=== PATIENT | female | born 1950 | race Caucasian/White ===

== ENCOUNTER 2017-07-15 10:32 | Inpatient (IN) | payer MEDICARE, OTHER ==
[~2017-07-15] VITALS: Ht 157.5 cm; Wt 71.5 kg
[2017-07-15] MEDS ORDERED: RISP1TAB27 PO (11:08)
[2017-07-15] MEDS ORDERED: QUET50TA PO (11:08)
[2017-07-15] MEDS ORDERED: TRAZ-144 PO (11:08)
[2017-07-15] MEDS ORDERED: METO25TA6 PO (11:08)
[2017-07-15] MEDS ORDERED: METO-302 PO (11:08)
[2017-07-15] MEDS ORDERED: PARO20TA7 PO (11:08)
[2017-07-15] MEDS ORDERED: MEMA10TA PO (11:08)
[2017-07-15] MEDS ORDERED: [UNRECOGNIZED DRUG - OTHER] (11:08)
[2017-07-15] MEDS ORDERED: LISI-603 PO (11:08)
[2017-07-15] MEDS ORDERED: IV NORMAL SALINE 500 ML BAG IV ONE (11:15)
[2017-07-15 11:21] LABS: BASOPHILS % (AUTO) 0.7 % (0.0-2.0); EOSINOPHILS # (AUTO) 0.2 K/uL (0.0-0.7); EOSINOPHILS % (AUTO) 3.7 % (0.0-7.0); HEMATOCRIT 36.1 % (31.2-41.9); HEMOGLOBIN 12.2 g/dL (10.9-14.3); LYMPHOCYTES # (AUTO) 1.5 K/uL (20.0-40.0); LYMPHOCYTES % (AUTO) 26.8 % (20.5-51.5); MEAN CORPUSCULAR HEMOGLOBIN 30.7 uug (24.7-32.8); MEAN CORPUSCULAR HGB CONC 34 g/dL (32.3-35.6); MEAN CORPUSCULAR VOLUME 90.6 fL (75.5-95.3); MONOCYTES # (AUTO) 0.5 K/uL (2.0-10.0); MONOCYTES % (AUTO) 8.3 % (0.0-11.0); NEUTROPHILS # (AUTO) 3.4 K/uL (1.8-8.9); NEUTROPHILS % (AUTO) 60.5 % (38.5-71.5); PLATELET COUNT (AUTO) 263 K/uL (179-408); RED BLOOD CELL COUNT(AUTO) 3.98 MIL/uL (3.63-4.92); WHITE BLOOD COUNT (AUTO) 5.6 K/uL (3.8-11.8)
[2017-07-15 11:34] LABS: CARBON DIOXIDE 24 mmol/L (21-32); CHLORIDE 108 mmol/L (98-107); CREATININE 0.9 mg/dL (0.6-1.3); GLUCOSE 95 mg/dL (74-106); UREA NITROGEN, BLOOD 25 mg/dL (7-18)
[2017-07-15 11:39] LABS: ETHANOL < 3 MG/DL (0-0)
[2017-07-15 11:40] LABS: ALANINE AMINOTRANSFERASE 23 U/L (14-59); ALKALINE PHOSPHATASE 51 U/L (50-136); ASPARTATE AMINOTRANSFERASE 14 U/L (15-37); BILIRUBIN,DIRECT 0.1 mg/dL (0.0-0.2); BILIRUBIN,TOTAL 0.4 mg/dL (0.2-1.0); TOTAL PROTEIN, SERUM 6.6 g/dL (6.4-8.2)
[2017-07-15 11:42] LABS: ACETAMINOPHEN < 2.0 ug/mL (10-30)
[2017-07-15 11:48] LABS: THYROID STIMULATING HORMONE 1.541 mIU/mL (0.358-3.740)
[2017-07-15 12:52] LABS: *BILIRUBIN,URIN NEGATIVE (NEGATIVE); *BLOOD, URINE NEGATIVE (NEGATIVE); *CLARITY,URINE CLEAR (CLEAR); *COLOR,URINE CLEAR (YELLOW); *KETONES,URINE NEGATIVE (NEGATIVE); *PROTEIN,URINE NEGATIVE (NEGATIVE); *UROBILINOGEN,URINE 0.2 E.U./dl (NORMAL); LEUKOCYTE ESTERASE ,URINE TRACE (NEGATIVE); NITRITE, URINE NEGATIVE (NEGATIVE); UGLUCOSE NEGATIVE (NEGATIVE)
[2017-07-15 13:00] LABS: BACTERIA,URINE NONE SEEN /HPF (NONE SEEN); RBC,URINE 0-3 /HPF (0-3); SQUAMOUS EPITHELIAL CELL,UR FEW /HPF (NONE SEEN); WBC,URINE 0-3 /HPF (0-3)
[2017-07-15 13:09] LABS: *AMPHETAMINE, URINE NEGATIVE (NEGATIVE); *BARBITURATE, URINE NEGATIVE (NEGATIVE); *CANNABINOID, URINE NEGATIVE (NEGATIVE); *COCCAINE, URINE NEGATIVE (NEGATIVE); *OPIATE, URINE NEGATIVE (NEGATIVE); *PHENCYCLIDINE SCREEN,URINE NEGATIVE (NEGATIVE)
[2017-07-15 13:49] VITALS: BP 131/68
[2017-07-15] MEDS ORDERED: DEXTROSE 50% 50 ML DISP.SYRIN IV PRN (16:00)
[2017-07-15 17:06] VITALS: BP 131/77
[2017-07-15] MEDS: BLOOD SUGAR DIAGNOSTIC 1 EACH STRIP VI SCH ×2 (17:07→20:17)
[2017-07-15] MEDS: INSULIN REGULAR, HUMAN 300 UNIT/3 ML VIAL SQ PRN ×2 (17:07→20:19)
[2017-07-15] MEDS ORDERED: risperiDONE 1 MG TABLET PO SCH (18:00)
[2017-07-15] MEDS ORDERED: MAG HYDROX/AL HYDROX/SIMETH 30 ML LIQUID UDC PO PRN (18:00)
[2017-07-15] MEDS: TRAZODONE 50 MG TABLET PO SCH (18:37)
[2017-07-15] MEDS: QUETIAPINE FUMARATE 25 MG TABLET PO SCH (20:13)
[2017-07-15 20:36] VITALS: BP 96/46
[2017-07-15] MEDS: IV NS 1000 ML 1,000 ML IV PRN (20:57)
[2017-07-16 00:10] VITALS: BP 111/61
[2017-07-16 05:06] VITALS: BP 114/42
[2017-07-16 06:07] LABS: BASOPHILS % (AUTO) 0.7 % (0.0-2.0); EOSINOPHILS # (AUTO) 0.3 K/uL (0.0-0.7); EOSINOPHILS % (AUTO) 5.8 % (0.0-7.0); HEMATOCRIT 34.4 % (37-47); HEMOGLOBIN 11.5 G/DL (12.0-16.0); LYMPHOCYTES # (AUTO) 1.9 K/UL (0.8-4.8); LYMPHOCYTES % (AUTO) 33.9 % (20.5-51.5); MEAN CORPUSCULAR HEMOGLOBIN 30.1 UUG (27.0-31.0); MEAN CORPUSCULAR HGB CONC 33 g/dL (32.0-37.0); MEAN CORPUSCULAR VOLUME 90.1 FL (81.0-99.0); MONOCYTES # (AUTO) 0.6 K/UL (0.1-1.30); NEUTROPHILS # (AUTO) 2.8 K/UL (1.8-8.9); NEUTROPHILS % (AUTO) 49.6 % (38.5-71.5); PLATELET COUNT (AUTO) 262 K/UL (150-450); RED BLOOD CELL COUNT(AUTO) 3.81 MIL/UL (4.2-5.4); WHITE BLOOD COUNT (AUTO) 5.6 K/UL (4.0-11.2)
[2017-07-16] MEDS: BLOOD SUGAR DIAGNOSTIC 1 EACH STRIP VI SCH ×4 (06:07→20:23)
[2017-07-16 06:32] LABS: THYROID STIMULATING HORMONE 2.087 mIU/mL (0.358-3.740)
[2017-07-16] MEDS: IV NS 1000 ML 1,000 ML IV PRN (06:33)
[2017-07-16 06:49] LABS: CREATININE 0.8 mg/dL (0.6-1.3); POTASSIUM 4.4 mmol/L (3.5-5.1)
[2017-07-16] MEDS: LISINOPRIL 20 MG TABLET PO SCH (08:13)
[2017-07-16] MEDS: MEMANTINE HCL 10 MG TABLET PO SCH ×2 (08:13→16:49)
[2017-07-16] MEDS: METOPROLOL TARTRATE 25 MG TABLET PO SCH ×2 (08:13→16:49)
[2017-07-16] MEDS: PAROXETINE HCL 20 MG TABLET PO SCH (08:13)
[2017-07-16 11:48] VITALS: BP 91/42
[2017-07-16 16:07] VITALS: BP 146/79
[2017-07-16] MEDS: TRAZODONE 50 MG TABLET PO SCH (17:02)
[2017-07-16 19:42] VITALS: BP 165/85
[2017-07-16] MEDS: QUETIAPINE FUMARATE 25 MG TABLET PO SCH (20:20)
[2017-07-16] MEDS: INSULIN REGULAR, HUMAN 300 UNIT/3 ML VIAL SQ PRN (20:30)
[2017-07-16 21:31] VITALS: BP 122/58
[2017-07-17] VITALS: BP 126/51
[2017-07-17 04:50] VITALS: BP 121/70
[2017-07-17] MEDS ORDERED: IV NORMAL SALINE 250 ML IV ONE (06:06)
[2017-07-17] MEDS ORDERED: IOHEXOL 300MG/ML 100 ML INFUS..BTL ONE (06:06)
[2017-07-17] MEDS: BLOOD SUGAR DIAGNOSTIC 1 EACH STRIP VI SCH ×4 (06:23→21:02)
[2017-07-17] MEDS: PAROXETINE HCL 20 MG TABLET PO SCH (08:06)
[2017-07-17] MEDS: METOPROLOL TARTRATE 25 MG TABLET PO SCH ×2 (08:06→16:07)
[2017-07-17] MEDS: MEMANTINE HCL 10 MG TABLET PO SCH ×2 (08:06→16:07)
[2017-07-17] MEDS: LISINOPRIL 20 MG TABLET PO SCH (08:06)
[2017-07-17 11:13] VITALS: BP 122/65
[2017-07-17] MEDS: INSULIN REGULAR, HUMAN 300 UNIT/3 ML VIAL SQ PRN ×2 (11:29→21:06)
[2017-07-17 15:22] VITALS: BP 111/67
[2017-07-17 19:30] VITALS: BP 126/67
[2017-07-17] MEDS: QUETIAPINE FUMARATE 25 MG TABLET PO SCH (20:52)
[2017-07-17] MEDS: MIRTAZAPINE 15 MG TABLET PO SCH (20:52)
[2017-07-18] MEDS: BLOOD SUGAR DIAGNOSTIC 1 EACH STRIP VI SCH ×4 (05:30→21:28)
[2017-07-18 06:26] VITALS: BP 132/63
[2017-07-18 08:44] VITALS: BP 105/58
[2017-07-18] MEDS: LISINOPRIL 20 MG TABLET PO SCH (09:43)
[2017-07-18] MEDS: PAROXETINE HCL 20 MG TABLET PO SCH (09:43)
[2017-07-18] MEDS: MEMANTINE HCL 10 MG TABLET PO SCH ×2 (09:43→17:33)
[2017-07-18] MEDS: METOPROLOL TARTRATE 25 MG TABLET PO SCH ×2 (09:43→17:34)
[2017-07-18 12:00] VITALS: BP 111/58
[2017-07-18 16:48] VITALS: BP 122/62
[2017-07-18 17:35] VITALS: BP 131/68
[2017-07-18] MEDS: INSULIN REGULAR, HUMAN 300 UNIT/3 ML VIAL SQ PRN (17:41)
[2017-07-18 20:21] VITALS: BP 101/59
[2017-07-18] MEDS: MIRTAZAPINE 15 MG TABLET PO SCH (20:28)
[2017-07-18] MEDS: QUETIAPINE FUMARATE 25 MG TABLET PO SCH (20:29)
[2017-07-19] MEDS: BLOOD SUGAR DIAGNOSTIC 1 EACH STRIP VI SCH ×4 (05:51→20:43)
[2017-07-19 05:52] VITALS: BP 124/65
[2017-07-19 07:19] LABS: CREATININE 0.9 mg/dL (0.6-1.3); PHOSPHOROUS 4.1 mg/dL (2.5-4.9); POTASSIUM 4.2 mmol/L (3.5-5.1)
[2017-07-19 07:26] LABS: BASOPHILS # (AUTO) 0.1 K/uL (0.0-8.0); BASOPHILS % (AUTO) 1.1 % (0.0-2.0); EOSINOPHILS # (AUTO) 0.4 K/uL (0.0-0.7); EOSINOPHILS % (AUTO) 5.4 % (0.0-7.0); HEMATOCRIT 34.3 % (31.2-41.9); HEMOGLOBIN 11.6 g/dL (10.9-14.3); LYMPHOCYTES # (AUTO) 2.5 K/uL (20.0-40.0); LYMPHOCYTES % (AUTO) 36.6 % (20.5-51.5); MEAN CORPUSCULAR HEMOGLOBIN 30.4 uug (24.7-32.8); MEAN CORPUSCULAR HGB CONC 34 g/dL (32.3-35.6); MEAN CORPUSCULAR VOLUME 90.3 fL (75.5-95.3); MONOCYTES # (AUTO) 0.7 K/uL (2.0-10.0); MONOCYTES % (AUTO) 11.1 % (0.0-11.0); NEUTROPHILS # (AUTO) 3.1 K/uL (1.8-8.9); NEUTROPHILS % (AUTO) 45.8 % (38.5-71.5); PLATELET COUNT (AUTO) 244 K/uL (179-408); WHITE BLOOD COUNT (AUTO) 6.7 K/uL (3.8-11.8)
[2017-07-19] MEDS: METOPROLOL TARTRATE 25 MG TABLET PO SCH ×3 (08:35→17:19)
[2017-07-19] MEDS: MEMANTINE HCL 10 MG TABLET PO SCH ×2 (08:36→17:19)
[2017-07-19] MEDS: LISINOPRIL 20 MG TABLET PO SCH (08:36)
[2017-07-19] MEDS: PAROXETINE HCL 20 MG TABLET PO SCH (08:36)
[2017-07-19 12:02] VITALS: BP 97/67
[2017-07-19 16:00] VITALS: BP 141/67
[2017-07-19 20:00] VITALS: BP 157/85
[2017-07-19] MEDS: MIRTAZAPINE 15 MG TABLET PO SCH (20:38)
[2017-07-19] MEDS: QUETIAPINE FUMARATE 25 MG TABLET PO SCH (20:45)
[2017-07-20 04:53] VITALS: BP 121/67
[2017-07-20] MEDS: BLOOD SUGAR DIAGNOSTIC 1 EACH STRIP VI SCH ×3 (06:44→16:26)
[2017-07-20] MEDS: PAROXETINE HCL 20 MG TABLET PO SCH (09:17)
[2017-07-20] MEDS: MEMANTINE HCL 10 MG TABLET PO SCH ×2 (09:17→16:26)
[2017-07-20] MEDS: LISINOPRIL 20 MG TABLET PO SCH (09:17)
[2017-07-20] MEDS: METOPROLOL TARTRATE 25 MG TABLET PO SCH ×2 (09:17→16:27)
[2017-07-20 12:00] VITALS: BP 119/58
[2017-07-20] MEDS ORDERED: MIRT15TA7 PO (12:27)
[2017-07-20 13:59] VITALS: BP 119/58
[2017-07-20 16:27] VITALS: BP 144/66
== END 2017-07-20 16:30 | DRG 640 ==
LOC: ER 10:32 → TELE 12:02 → MED 07-17 22:30
PROVIDERS: ADMIT Internal Medicine; ATTEND Internal Medicine
DX: E86.9 Volume depletion, unspecified (principal); G93.41 Metabolic encephalopathy; E87.0 Hyperosmolality and hypernatremia; R62.7 Adult failure to thrive; F03.90 Unspecified dementia, unspecified severity, without behavioral disturbance, psychotic disturbance, mood disturbance, and anxiety; E11.9 Type 2 diabetes mellitus without complications; I10 Essential (primary) hypertension; R26.9 Unspecified abnormalities of gait and mobility; Z79.899 Other long term (current) drug therapy; F32.9 Major depressive disorder, single episode, unspecified; F29 Unspecified psychosis not due to a substance or known physiological condition; Z79.4 Long term (current) use of insulin
CPT/HCPCS: 36415; 70030-TC; 71010; 80307; 83605; 83735; 84100; 84443; 85025; 85730; 87040; 87086; 93005; A4663; G0480; G0480-TC; J1815; J7030; J7040; J7050; Q9967